=== PATIENT | female | born 1965 | race Caucasian/White ===

== ENCOUNTER → 2021-08-17 | Emergency (ER) | payer OTHER ==
[~2021-08-17] VITALS: Ht 157.5 cm; Wt 90.9 kg
[~2021-08-17] MED LIST: HYDROCODONE/ACETAMINOPHEN 5-325 MG TABLET PO ONE; KETOROLAC TROMETHAMINE 60 MG/2 ML VIAL IM ONE
[2021-08-17 19:06] VITALS: BP 149/86
== END | disposition home or self-care (01) ==
LOC: EMS 15:03
DX: G89.29 Other chronic pain (principal); M54.50 Low back pain, unspecified; Z88.2 Allergy status to sulfonamides; Z88.8 Allergy status to other drugs, medicaments and biological substances
CPT/HCPCS: 96372; 99283; J1885

== ENCOUNTER 2022-10-05 17:51 | Emergency (ER) | payer OTHER ==
[~2022-10-05] VITALS: Ht 160 cm; Wt 65.9 kg
[2022-10-05] MEDS ORDERED: LORazepam 2 MG/ML VIAL IVP ONE (18:15)
[2022-10-05 18:26] LABS: CALCIUM, TOTAL 9.6 mg/dL (8.8-10.5); CREATININE 0.97 mg/dL (0.60-1.30); POTASSIUM 3.5 mmol/L (3.5-5.1)
[2022-10-05 19:30] VITALS: BP 128/100
== END 2022-10-06 04:18 | disposition home or self-care (01) ==
LOC: EMS 17:56
DX: R56.9 Unspecified convulsions (principal); F41.9 Anxiety disorder, unspecified; M19.90 Unspecified osteoarthritis, unspecified site; F32.A Depression, unspecified; E78.00 Pure hypercholesterolemia, unspecified; I10 Essential (primary) hypertension; G89.29 Other chronic pain; M54.9 Dorsalgia, unspecified; Z90.49 Acquired absence of other specified parts of digestive tract; Z98.890 Other specified postprocedural states; Z88.2 Allergy status to sulfonamides; Z88.8 Allergy status to other drugs, medicaments and biological substances
CPT/HCPCS: 99284; 96374; 70450; 80048; 36415; J2060